=== PATIENT | female | born 1955 | race Caucasian/White ===

== ENCOUNTER 2016-12-27 12:55 | Emergency (ER) | payer OTHER ==
[~2016-12-27 12:55] MED LIST: ACETAMINOPHEN325 MG PO; AMLODIPINE BESYL5 MG PO; AMOXICILLIN875 MG PO; AUGMENTIN PO; BENZONATATE200 MG PO; BUPROPION HCL150 M1 PO; CARDURA PO; CARDURA8 MG PO; CIPRO PO; CRESTOR PO; FUROSEMIDE40 MG PO; GLUCOTROL XL PO; KCL PO; KLOR-CON PO; KOMBIGLYZE XR1 EAC2 PO; LASIX PO; LIPITOR PO; LISINOPRIL PO; LOPRESSOR PO; POTASSIUM CHLO10 ME1 PO; POTASSIUM CHLO10 MEQ PO; PRAVACHOL PO; PRAVASTATIN SOD40 MG PO; PRINIVIL40 MG PO; PROAIR HFA8.5 GM INH; SERTRALINE HCL100 M1 PO; TESSALON200 MG PO; TOPROL XL PO; WELLBUTRIN SR150 MG PO; WELLBUTRIN XL PO; ZOLOFT PO; ZOLOFT100 MG PO
[2016-12-27 13:17] LABS: INFLUENZA A NEG (NEG); INFLUENZA B NEG (NEG)
== END 2016-12-27 13:46 | disposition home or self-care (01) ==
LOC: CFTX 12:55
PROVIDERS: Nurse Practitioner
DX: J06.9 Acute upper respiratory infection, unspecified (principal); I10 Essential (primary) hypertension; F32.9 Major depressive disorder, single episode, unspecified; Z86.73 Personal history of transient ischemic attack (TIA), and cerebral infarction without residual deficits; Z90.49 Acquired absence of other specified parts of digestive tract; Z90.710 Acquired absence of both cervix and uterus
CPT/HCPCS: 87651; 87804; 99282

== ENCOUNTER → 2017-01-30 | Outpatient (CLI) | payer OTHER ==
--- NOTE | ~2017-01-30 | BD1 ---
[facility] A Service of [facility] RADIOLOGY TEXT RESULTS PATIENT: RACHEAL CALDERÓN LOCATION: [facility] : 55 UNIT #: [id number] AGE: [address]: Rajinder Alegre MD SEX: F ORDER DR: [id number] [facility] [address] [place], [place] [address] [id number] O MR#: [id number] Acc #: [id number] NAME: RACHEAL CALDERÓN : 1955 SEX: F STUDY DATE/TIME: 01/30/2017 13:32 UNIT: [facility] ROOM: STUDY DESCRIPTION: BD Dexa Bone Dens 1+ Site Attending Physician: Rajinder Alegre M.D. Referring Physician: Rajinder Alegre M.D. Ordering Physician: Rajinder Alegre M.D. Primary Care Physician: Rajinder Alegre M.D. MEDICAL IMAGING REPORT This report is preliminary unless electronic signature is present EXAM DXA scan, 01/30/2017. HISTORY Status post menopause with no hormone replacement therapy. Osteopenia. Hysterectomy at age 37. Arthritis and diabetes. Hypertension with blood pressure medication. FINDINGS Bone mineral density in the lumbar spine from L1-L4 is 0.839 g/cm2 which is 1.9 standard deviations below the mean when compared to the young adult reference population which is characteristic of osteopenia. This is 0.3 standard deviations below the mean when compared to the age-matched population. Bone mineral density in the left femoral neck was 0.363 g/cm2 which is 4.4 standard deviations below the mean when compared to the young adult reference population which is characteristic of osteoporosis. This is 3 standard deviations below the mean when compared to the age-matched population. IMPRESSION Bone mineral density in the lumbar spine characteristic of osteopenia and within the left hip characteristic of osteoporosis. Dictated by... Harjinder Fowler M.D. THIS IS AN ELECTRONICALLY VERIFIED REPORT Harjinder Fowler M.D. at 01/31/2017 8:05 AM KRT/tmw [facility] A Service of [facility] RADIOLOGY TEXT RESULTS PATIENT: RACHEAL CALDERÓN LOCATION: [facility] : 55 UNIT #: [id number] AGE: [address]: Rajinder Alegre MD SEX: F ORDER DR: TD: 01/30/2017 16:10 JOB #: [id number] MEDICAL IMAGING REPORT Page 1 of 1 COPY
--- NOTE | ~2017-01-30 | MY11 ---
[facility] A Service of [facility] RADIOLOGY TEXT RESULTS PATIENT: RACHEAL CALDERÓN LOCATION: [facility] : 55 UNIT #: [id number] AGE: [address]: Rajinder Alegre MD SEX: F ORDER DR: [id number] [facility] [address] [place], [place] [address] [id number] O MR#: [id number] Acc #: [id number] NAME: RACHEAL CALDERÓN : 1955 SEX: F STUDY DATE/TIME: 01/30/2017 13:25 UNIT: [facility] ROOM: STUDY DESCRIPTION: MY Mammogram Screening Dig Santos Attending Physician: Rajinder Alegre M.D. Referring Physician: Rajinder Alegre M.D. Ordering Physician: Rajinder Alegre M.D. Primary Care Physician: Rajinder Alegre M.D. MEDICAL IMAGING REPORT This report is preliminary unless electronic signature is present EXAM Screening mammogram, 01/30 INDICATION 61-year-old with no personal or family history of breast cancer. No current complaints. FINDINGS Routine digital screening views of both breasts were obtained. Study is reviewed with an FDA-approved CAD device. Comparison is made with 01/24/2016, 11/25/2014. Breast parenchyma shows scattered fibroglandular densities. No new masses or suspicious microcalcifications are seen. Benign calcifications in both breasts are stable. IMPRESSION Benign mammogram. Routine screen in 1 year recommended. Patients over the age of 40 are entered into a reminder system with target due date for the next mammogram. A result letter will also be sent to the patient. BIRADS: 2 Benign Finding Dictated by... Dami Farris Jr., M.D. THIS IS AN ELECTRONICALLY VERIFIED REPORT Dami Farris Jr., M.D. at 01/30/2017 3:56 PM Sree TD: 01/30/2017 15:43 [facility] A Service of [facility] RADIOLOGY TEXT RESULTS PATIENT: RACHEAL CALDERÓN LOCATION: [facility] : 55 UNIT #: [id number] AGE: [address]: Rajinder Alegre MD SEX: F ORDER DR: JOB #: [id number] MEDICAL IMAGING REPORT Page 1 of 1 COPY
== END | disposition home or self-care (01) ==
LOC: CWCC 13:01
DX: Z12.31 Encounter for screening mammogram for malignant neoplasm of breast (principal); Z13.820 Encounter for screening for osteoporosis; Z78.0 Asymptomatic menopausal state; Z79.01 Long term (current) use of anticoagulants
CPT/HCPCS: 77080; G0202